=== PATIENT | female | born 1990 | race American Indian/Alaskan Native ===

== ENCOUNTER 2018-03-04 20:34 | Emergency (ER) | payer BC ==
--- NOTE | 2018-03-04 20:38 | ER Report ---
History and Physical Time Seen By MD: 20:36 HPI/ROS CHIEF COMPLAINT: Right upper lip injury, laceration HISTORY OF PRESENT ILLNESS: 27-year-old female presents ambulatory to the ER complaining of right upper lip pain. She was put is spinning in a softball game when a thrown ball was missed by the 3rd baseman the ball struck her in the face and the right upper lip. She has a through and through laceration of the right upper lip. Patient reports her tetanus status is greater than 10 years. Patient denies LOC, headache, nausea or vomiting. Patient denies neck pain. Patient notes no dental injury. Allergies: Coded Allergies: No Known Drug Allergies (Unverified , 03/04/18) Home Meds Active Scripts Amoxicillin (AMOXICILLIN) 875 Mg Tablet, 1 TAB PO Q12H for prevention of infection, #10 TAB Prov:KUMAR GOODWIN DO 03/04/18 Reviewed Nurses Notes: Yes Old Medical Records Reviewed: Yes Constitutional Vital Sign - Last 24 Hours 03/04/18 03/04/18 20:37 21:15 Temp 98.6 Pulse 69 Resp 16 16 B/P (MAP) 113/77 117/69 (85) Pulse Ox 95 96 O2 Delivery Room Air Room Air Physical Exam General appearance: Mild distress, vital signs stable, afebrile, alert and oriented 3 HEENT: EOMI, PERRLA, TMs normal, facial bones intact on palpation. There is a 1 cm laceration to the right upper lip , external to the vermilion border. It gaps open is quite deep. On visualization of the buccal the coastal surface. There is a tiny laceration on the inside, approximately 5 mm long. Palpation of the teeth reveals no trauma or tenderness. Respiratory: Chest is non tender, lungs are clear to auscultation. Cardiac: Regular rate and rhythm DIFFERENTIAL DIAGNOSIS: After history and physical exam differential diagnosis was considered for facial contusion, lip laceration, dental injury, through and through laceration of the upper lip, foreign body Medical Decision Making ED Course/Re-evaluation ED Course Patient was admitted to an examination room. H&P was done. The differential diagnoses was considered. On clinical examination. Patient has a right upper lip laceration appears to penetrate to the lip. She states tetanus status is updated. Her wound is repaired as noted below. Administered amoxicillin 875 mg by mouth for treatment of potential infection of a through and through laceration. Patient was covered with amoxicillin 875 mg twice a day for 5 days. She advised daily wound care. She is to have her sutures removed from the external surface in 4-5 days. Procedure: Laceration repair. Verbal consent was obtained from the patient. The 1.0 cm laceration on the right upper lip was anesthetized in the usual fashion. The wound was scrubbed, draped and explored to its base with a gloved finger. There were no deep structures involved. No tendon injury was identified. The wound was repaired with 6-0 Prolene 3 sutures. The wound repair was simple. The procedure was performed by myself. Procedure: Laceration repair. Verbal consent was obtained from the patient. The 5 mm laceration on the internal right upper lip on the buccal mucosal surface was anesthetized in the usual fashion. The wound was scrubbed, draped and explored to its base with a gloved finger. The wound was repaired with 5-0 Vicryl times one suture. The wound repair was simple. The procedure was performed by myself. Decision to Disposition Date: Mar 04, 2018 Decision to Disposition Time: 20:55 Depart Departure Latest Vital Signs Vital Signs Date Time Temp Pulse Resp B/P (MAP) Pulse Ox O2 Delivery O2 Flow Rate FiO2 03/04/18 21:15 16 117/69 (85) 96 Room Air 03/04/18 20:37 98.6 69 Impression: Primary Impression: Lip laceration Condition: Improved Disposition: HOME OR SELF-CARE New Scripts Amoxicillin (AMOXICILLIN) 875 Mg Tablet 1 TAB PO Q12H for prevention of infection, #10 TAB Prov: KUMAR GOODWIN DO 03/04/18 Patient Instructions: Facial Laceration (ED) Additional Instructions: Perform daily wound care on your external laceration, gently scrubbed the area with baby shampoo or a mild soap. Cover with a layer of anabolic ointment. Have your stitches removed in 4 days Problem Qualifiers Primary Impression: Lip laceration Encounter type: initial encounter Qualified Codes: S01.511A - Laceration without foreign body of lip, initial encounter KUMAR GOODWIN DO Mar 04, 2018 20:37
[2018-03-04] MEDS ORDERED: DIPHTH/TETANUS/ACEL. PERTUSSIS IM ONLY ONE (20:45)
[2018-03-04] MEDS ORDERED: AMOX875T60 PO (20:56)
[2018-03-04] MEDS ORDERED: AMOXICILLIN 875 MG TAB PO ONE (21:00)
[2018-03-04 21:15] VITALS: BP 117/69
== END 2018-03-04 21:25 | disposition home or self-care (01) ==
LOC: ER 21:24
DX: S01.511A Laceration without foreign body of lip, initial encounter (principal)
CPT/HCPCS: 90471; 90715; 99283